=== PATIENT | female | born 1990 | race Asian ===

== ENCOUNTER 2021-02-05 21:58 | Inpatient (IN) | payer OTHER ==
[~2021-02-05] VITALS: Ht 165.1 cm; Wt 66.7 kg
[2021-02-05] MEDS ORDERED: TERBUTALINE 1 MG/ML, 1ML IVPush PRN (22:30)
[2021-02-05] MEDS: LACTATED RINGERS 1,000 ML IV SCH (22:30)
[2021-02-05] MEDS ORDERED: TERBUTALINE 1 MG/ML, 1ML SQ PRN (22:30)
[2021-02-05] MEDS ORDERED: CALCIUM CARBONATE 500 MG TAB.CHEW PO PRN (22:30)
[2021-02-05] MEDS ORDERED: ALUMINUM/MAG/SIMETHICONE 30 ML UDC PO PRN (22:30)
[2021-02-05] MEDS ORDERED: METOCLOPRAMIDE 5 MG/ML, 2ML IVPush PRN (22:30)
[2021-02-05] MEDS ORDERED: OXYTOCIN 30U/ 0.9% NaCL 500ML 500 ML IV ONE (22:30)
[2021-02-05] MEDS ORDERED: SODIUM CHLORIDE FLUSH 10ML SYR IVF PRN (22:30)
[2021-02-05] MEDS ORDERED: SODIUM CITRATE/CITRIC ACID 30 ML UDC PO PRN (22:30)
[2021-02-05] MEDS: D5%-LACTATED RINGERS 1,000 ML IV SCH (22:30)
[2021-02-05] MEDS ORDERED: ONDANSETRON 2MG/ML, 2ML IVPush PRN (22:30)
[2021-02-05] MEDS ORDERED: FENTANYL PF 100 MCG/2ML IV PRN (22:30)
[2021-02-05] MEDS ORDERED: FENTANYL PF 100 MCG/2ML IVPush PRN (22:30)
[2021-02-05 22:42] LABS: BASOPHILS % (AUTO) 1 % (0-1); EOSINOPHILS % (AUTO) 1 % (1-7); LYMPHOCYTES % (AUTO) 17 % (22-44); MD NO; MEAN CORPUSCULAR HEMOGLOBIN 30.4 pg (27.0-34.8); MEAN CORPUSCULAR HGB CONC 33.5 g/dL (32.4-35.8); MONOCYTES % (AUTO) 7 % (2-9); NEUTROPHILS % (AUTO) 75 % (42-75); PLATELET COUNT 239 x10^3/uL (130-400); RED BLOOD COUNT 4.28 x10^6/uL (3.82-5.3); RED CELL DISTRIBUTION WIDTH 15.9 % (9.6-15.2)
[2021-02-05] MEDS ORDERED: FENTANYL/BUPIV./NS/PF 250 ML EPIDCONT ONE (23:05)
[2021-02-05] MEDS ORDERED: BUPIVACAINE 0.25% ONE (23:05)
[2021-02-05] MEDS ORDERED: FENTANYL/BUPIV./NS/PF 250 ML EPIDCONT SCH (23:30)
[2021-02-05] MEDS ORDERED: EPHEDRINE 50 MG/ML, 1ML IVPush PRN (23:30)
[2021-02-05] MEDS ORDERED: LACTATED RINGERS 1,000 ML IV SCH (23:30)
[2021-02-05] MEDS ORDERED: NALOXONE 0.4 MG/ML, 1ML IVPush PRN (23:30)
[2021-02-05] MEDS ORDERED: LACTATED RINGERS 1,000 ML IVBOLUS PRN (23:30)
[2021-02-06] MEDS ORDERED: NEWBORN KIT ONE (00:06)
[2021-02-06] MEDS: LACTATED RINGERS 1,000 ML IV SCH (01:45)
[2021-02-06 04:25] VITALS: BP 95/55
[2021-02-06] MEDS: D5%-LACTATED RINGERS 1,000 ML IV SCH (06:30)
[2021-02-06] MEDS: OXYTOCIN 30U/ 0.9% NaCL 500ML 500 ML IV SCH ×2 (06:57→17:00)
[2021-02-06] MEDS ORDERED: OXYTOCIN 30U/ 0.9% NaCL 500ML 500 ML IV PRN (07:00)
[2021-02-06] MEDS ORDERED: OXYTOCIN 30U/ 0.9% NaCL 500ML 500 ML IV SCH ×2 (07:00)
[2021-02-06] MEDS ORDERED: DOCUSATE 100 MG CAPSULE PO PRN ×2 (07:00)
[2021-02-06] MEDS ORDERED: ACETAMINOPHEN 325 MG TABLET PO PRN ×6 (07:00)
[2021-02-06] MEDS ORDERED: OXYcodone/APAP 5/325MG TABLET PO PRN ×5 (07:00)
[2021-02-06] MEDS ORDERED: SIMETHICONE 80 MG CHEW TAB PO PRN ×3 (07:00)
[2021-02-06] MEDS ORDERED: ONDANSETRON 2MG/ML, 2ML IV PRN ×3 (07:00)
[2021-02-06] MEDS ORDERED: IBUPROFEN 800 MG TABLET PO PRN ×2 (07:00)
[2021-02-06] MEDS ORDERED: MISOPROSTOL 200 MCG TABLET PR PRN ×3 (07:00)
[2021-02-06 09:00] VITALS: BP 100/68
[2021-02-06] MEDS: PRENATAL VIT/IRON/FA 1 EACH TABLET PO SCH (09:00)
[2021-02-06] MEDS ORDERED: PRENATAL VIT/IRON/FA 1 EACH TABLET PO SCH ×2 (09:00)
[2021-02-06] MEDS: IBUPROFEN 800 MG TABLET PO PRN ×2 (11:32→19:38)
[2021-02-06] MEDS: OXYcodone/APAP 5/325MG TABLET PO PRN ×2 (11:32→19:38)
[2021-02-06 14:44] LABS: BASOPHILS % (AUTO) 1 % (0-1); EOSINOPHILS % (AUTO) 0 % (1-7); LYMPHOCYTES % (AUTO) 10 % (22-44); MEAN CORPUSCULAR HEMOGLOBIN 30.9 pg (27.0-34.8); MEAN CORPUSCULAR HGB CONC 33.7 g/dL (32.4-35.8); MEAN PLATELET VOLUME 8.3 fL (7.4-10.4); MONOCYTES % (AUTO) 6 % (2-9); NEUTROPHILS % (AUTO) 84 % (42-75); PLATELET COUNT 202 x10^3/uL (130-400); RED BLOOD COUNT 3.57 x10^6/uL (3.82-5.3); RED CELL DISTRIBUTION WIDTH 15.8 % (9.6-15.2)
[2021-02-06 14:45] LABS: MD NO
[2021-02-06 16:00] VITALS: BP 110/72
[2021-02-06 19:30] VITALS: BP 119/69
[2021-02-06] MEDS: DOCUSATE 100 MG CAPSULE PO PRN (19:38)
[2021-02-07 00:15] VITALS: BP 102/73
[2021-02-07] MEDS: OXYTOCIN 30U/ 0.9% NaCL 500ML 500 ML IV SCH (03:00)
[2021-02-07 04:25] VITALS: BP 95/55
[2021-02-07] MEDS: OXYcodone/APAP 5/325MG TABLET PO PRN ×3 (04:25→12:36)
[2021-02-07] MEDS: IBUPROFEN 800 MG TABLET PO PRN ×2 (04:25→12:36)
[2021-02-07] MEDS ORDERED: DIPH,PERTUSS(ACELL),TET VAC/PF NC IM-VACC ONE (06:30)
[2021-02-07] MEDS ORDERED: IBUP-1222 PO (06:48)
[2021-02-07 07:45] VITALS: BP 104/68
[2021-02-07] MEDS: DOCUSATE 100 MG CAPSULE PO PRN (08:15)
[2021-02-07] MEDS: PRENATAL VIT/IRON/FA 1 EACH TABLET PO SCH (08:15)
[2021-02-07] MEDS ORDERED: NEWBORN KIT ONE (12:45)
== END 2021-02-07 14:00 | disposition home or self-care (01) | DRG 807 ==
LOC: LDOP 21:58 → UNDOADMIN 22:20 → EDIP 22:20 → LDIP 22:53 → 2NW 02-06 09:00
PROVIDERS: ADMIT Obstetrics & Gynecology; ATTEND Obstetrics & Gynecology
PROC: 10E0XZZ Delivery of Products of Conception, External Approach (ICD-10-PCS; principal; 2021-02-06)
PROC: 0KQM0ZZ Repair Perineum Muscle, Open Approach (ICD-10-PCS; 2021-02-06)
PROC: 3E0R3BZ Introduction of Anesthetic Agent into Spinal Canal, Percutaneous Approach (ICD-10-PCS; 2021-02-06)
PROC: 00HU33Z Insertion of Infusion Device into Spinal Canal, Percutaneous Approach (ICD-10-PCS; 2021-02-06)
PROC: 3E0234Z Introduction of Serum, Toxoid and Vaccine into Muscle, Percutaneous Approach (ICD-10-PCS; 2021-02-07)
DX: O98.52 Other viral diseases complicating childbirth (principal); Z37.0 Single live birth; O70.1 Second degree perineal laceration during delivery; Z3A.38 38 weeks gestation of pregnancy; B00.9 Herpesviral infection, unspecified; Z20.822 Contact with and (suspected) exposure to COVID-19; Z23 Encounter for immunization
CPT/HCPCS: 36415; 85025; 86592; 86850; 86900; 87635; 90715; G0378; J2590; J3010; J7120

== ENCOUNTER 2021-03-27 03:19 | Emergency (ER) | payer SELFPAY ==
[~2021-03-27] VITALS: Ht 162.6 cm; Wt 68.0 kg
[~2021-03-27 03:19] MED LIST: IBUP-1222 PO
[2021-03-27] MEDS ORDERED: DIAZEPAM 5 MG/ML, 2ML IV ONE (04:00)
[2021-03-27] MEDS ORDERED: LIDODERM 5% PATCH TD ONE ×2 (04:00→05:31)
[2021-03-27] MEDS ORDERED: KETOROLAC 30 MG/1 ML IM ONE (04:00)
[2021-03-27] MEDS ORDERED: KETOROLAC 30 MG/1 ML ONE (04:05)
[2021-03-27] MEDS ORDERED: DIAZEPAM 5 MG/ML, 2ML ONE (04:05)
[2021-03-27] MEDS ORDERED: KETOROLAC 30 MG/1 ML IVPush ONE (04:30)
--- NOTE | 2021-03-27 04:34 | NUR ---
PT REQUESTING AN ELECTRIC BREAST PUMP, STATES SHE IS HAVING BREAST PAIN FROM FULLNESS. BREAST PUMP AND ALL SUPPLIES AQUIRED FROM POST UNIT FOR PT USE.
[2021-03-27 04:35] LABS: BASOPHILS % (AUTO) 1 % (0-1); EOSINOPHILS % (AUTO) 4 % (1-7); LYMPHOCYTES % (AUTO) 26 % (22-44); MEAN CORPUSCULAR HGB CONC 34.1 g/dL (32.4-35.8); MEAN PLATELET VOLUME 7.7 fL (7.4-10.4); MONOCYTES % (AUTO) 8 % (2-9); NEUTROPHILS % (AUTO) 62 % (42-75); PLATELET COUNT 344 x10^3/uL (130-400); RED BLOOD COUNT 4.38 x10^6/uL (3.82-5.3); RED CELL DISTRIBUTION WIDTH 13.1 % (9.6-15.2)
[2021-03-27 04:37] LABS: HCT (SEDRATE) 38.2 % (34.6-47.8)
[2021-03-27 04:44] LABS: ANION GAP 7 mmol/L (5-15); C-REACTIVE PROTEIN, QUANT 0.41 mg/dL (0.02-0.49); CALCIUM 8.7 mg/dL (8.5-10.1); CHLORIDE 106 mmol/L (98-107); CREATININE 0.56 mg/dL (0.55-1.02)
[2021-03-27] MEDS ORDERED: ONDANSETRON 2MG/ML, 2ML ONE (05:41)
[2021-03-27] MEDS ORDERED: MORPHINE SULFATE 4 MG/ML, 1ML ONE (05:41)
[2021-03-27 05:47] VITALS: BP 98/63
--- NOTE | 2021-03-27 05:48 | NUR ---
PT REPORTS LITTLE PAIN RELIEF FROM MEDS. KELLY NOTIFIED AND ORDERS RECIEVED FOR MORE PAIN MEDS. PT MEDICATED PER EMAR.
[2021-03-27] MEDS ORDERED: MORPHINE SULFATE 4 MG/ML, 1ML IVPush ONE (06:00)
[2021-03-27] MEDS ORDERED: ONDANSETRON 2MG/ML, 2ML IVPush ONE (06:00)
--- NOTE | 2021-03-27 06:49 | NUR ---
BREAST PUMP RETURNED TO POST
== END 2021-03-27 07:03 | disposition home or self-care (01) ==
LOC: ED 04:05
DX: M54.5 Low back pain (principal); M25.552 Pain in left hip; M79.652 Pain in left thigh
CPT/HCPCS: 36415; 72110; 73502; 80048; 85025; 85651; 86140; 96374; 96375; 99284; J1885; J2270; J2405; J3360